=== PATIENT | female | born 1965 | race Caucasian/White ===

== ENCOUNTER 2017-08-14 13:39 | Outpatient (CLI) | payer OTHER ==
[2017-08-14 14:07] LABS: #Eosinphils 0.2 thou/uL (0.0-0.7); #Lymphocytes 2.5 thou/uL (1.20-3.40); #Monocytes 0.4 thou/uL (0.11-0.59); #Neutrophils 2.8 thou/uL (1.40-6.50); %Basophils 0.3 % (0.0-1.0); %Eosinophils 3.1 % (0.0-10.0); %Lymphocytes 42.8 % (21.0-51.0); %Monocytes 7.2 % (0.0-10.0); Hematocrit 48.5 % (36.0-47.0); Mean Platelet Volume 7.7 fL (7.4-10.4); Red Blood Cell (RBC) Count 5.22 mill/uL (4.20-5.40); White Blood Cell (WBC) Count 5.9 thou/uL (4.8-10.8)
[2017-08-14 14:32] LABS: Anion Gap 8 mmol/L (10-20); BUN (Urea Nitrogen) 19 mg/dL (7.0-18.7); Calc. Creatinine Clearance 0 mL/min (70-130); Calcium 9.2 mg/dL (7.8-10.44); Carbon Dioxide 31 mmol/L (22-29); Chloride 105 mmol/L (98-107); Estimated GFR-MDRD 63
== END 2017-08-14 13:40 | disposition home or self-care (01) ==
LOC: LABBT 13:39
PROVIDERS: ATTEND Orthopaedic Surgery
DX: Z01.818 Encounter for other preprocedural examination (principal); M75.102 Unspecified rotator cuff tear or rupture of left shoulder, not specified as traumatic
CPT/HCPCS: 80048; 85025; 93005; 93010

== ENCOUNTER 2017-08-16 06:28 | Day surgery (SDC) | payer OTHER ==
[2017-08-14 14:10] VITALS: BMI 39.6
[2017-08-16] MEDS ORDERED: Fentanyl 100 MCG/2 ML VIAL ONE ×3 (06:39→09:37)
[2017-08-16] MEDS ORDERED: Midazolam HCl 2 mg/2 ml Vial ONE ×2 (06:39→08:31)
[2017-08-16] MEDS ORDERED: Ropivacaine 0.2% HCl/PF 20 ML ONE (06:39)
[2017-08-16] MEDS ORDERED: Promethazine HCl 25 MG/ML VIAL IM PRN (07:50)
[2017-08-16] MEDS ORDERED: Ketorolac Tromethamine 30 MG/ML VIAL IVP PRN (07:50)
[2017-08-16] MEDS ORDERED: Ondansetron HCl/PF 4 MG/2 ML Vial IVP PRN (07:50)
[2017-08-16] MEDS ORDERED: Zolpidem Tartrate 5 MG TAB PO PRN (07:50)
[2017-08-16] MEDS ORDERED: ROPIVACAINE 0.2% NERVE BLCK SCH (07:50)
[2017-08-16] MEDS ORDERED: Glycopyrrolate 0.2 MG/ML 5 ML SYRINGE ONE (08:55)
[2017-08-16] MEDS ORDERED: Lidocaine 2% PF 10 ML AMP (For Epidural Use) ONE (08:55)
[2017-08-16] MEDS ORDERED: Propofol 200 MG/20 ML VIAL ONE (08:55)
[2017-08-16] MEDS ORDERED: Albuterol Sulfate 1.25 MG/3 ML NEB ONE (10:22)
--- NOTE | 2017-08-16 10:30 | OP ---
PREOPERATIVE DIAGNOSIS: Rotator cuff tear of the left shoulder. POSTOPERATIVE DIAGNOSIS: Rotator cuff tear of the left shoulder. SURGICAL PROCEDURES: Arthroscopic subacromial decompression and arthroscopic rotator cuff repair. SURGEON: Pedro Luis Best M.D. TEAR DOWN WORKER: None. ANESTHESIA: General. BLOOD LOSS: Minimal. DRAINS: None. COMPLICATIONS: None. DESCRIPTION OF THE PROCEDURE: The patient was placed in right lateral decubitus position. Left arm was placed in traction 15 pounds and prepped and draped in the usual sterile fashion. Scope was pl aced in the glenohumeral joint. There were no significant degenerative changes. There was a full-t hickness rotator cuff tear. Scope was placed in the subacromial bursa. I performed an anterior inf erior acromioplasty and bursectomy, rotator cuff was freshened, greater tuberosity was freshened and placed 2 Arthrex corkscrew suture anchors through the freshened bone, suture tendon down to bone wi th a good watertight repair and reinforced this with double row suture technique using a SwiveLock. Shoulder was then drained. Portals closed with nylon suture and sterile dressings applied. There were no complications.
== END 2017-08-16 12:45 | disposition home or self-care (01) ==
LOC: SDC 06:28
PROVIDERS: ATTEND Orthopaedic Surgery
PROC: 0RNK4ZZ Release Left Shoulder Joint, Percutaneous Endoscopic Approach (ICD-10-PCS; principal; 2017-08-16)
PROC: 0LQ24ZZ Repair Left Shoulder Tendon, Percutaneous Endoscopic Approach (ICD-10-PCS; principal; 2017-08-16)
DX: M75.122 Complete rotator cuff tear or rupture of left shoulder, not specified as traumatic (principal); F17.200 Nicotine dependence, unspecified, uncomplicated; E07.9 Disorder of thyroid, unspecified; Z79.899 Other long term (current) drug therapy; Z88.5 Allergy status to narcotic agent; Z90.710 Acquired absence of both cervix and uterus; Z98.890 Other specified postprocedural states; Z87.59 Personal history of other complications of pregnancy, childbirth and the puerperium; Z86.010 Personal history of colon polyps
CPT/HCPCS: A4306; C1713; G8981-GP-CK; G8982-GP-CK; G8983-GP-CK; J2001; J2250; J2704; J2795; J3010

== ENCOUNTER 2018-12-18 22:40 | Observation (INO) | payer SELFPAY ==
[2018-12-18 23:04] LABS: #Basophils 0.1 thou/uL (0.0-0.2); #Eosinphils 0.2 thou/uL (0.0-0.7); #Lymphocytes 2.7 thou/uL (1.20-3.40); #Monocytes 0.6 thou/uL (0.11-0.59); #Neutrophils 3.4 thou/uL (1.40-6.50); %Basophils 1.1 % (0.0-1.0); %Eosinophils 2.7 % (0.0-10.0); %Lymphocytes 39.2 % (21.0-51.0); %Monocytes 8.2 % (0.0-10.0); %Neutrophils 48.7 % (42.0-75.0); Hemoglobin 16.7 g/dL (12.0-16.0); Mean Corpuscular HGB CONC 33.2 g/dL (32.0-36.0); Mean Corpuscular Hemoglobin 30.7 pg (27.0-31.0); Mean Corpuscular Volume 92.4 fL (78.0-98.0); Mean Platelet Volume 8.1 fL (7.4-10.4); Platelet Count 230 thou/uL (130-400); RBC Distribution Width 12.3 % (11.5-14.5); Red Blood Cell (RBC) Count 5.43 mill/uL (4.20-5.40)
--- NOTE | 2018-12-18 23:12 | RAD ---
CHEST ONE VIEW: 12/18/18 INDICATION: History of chest pain. COMPARISON: Prior exam dated 06/09/07. FINDINGS: Heart size remains upper limits of normal. Lungs are clear. No pleural effusion is evident. There is postsurgical change of a left rotator cuff repair. No acute osseous abnormality is evident. IMPRESSION: No acute cardiopulmonary abnormality. POS: [facility]
[2018-12-18 23:41] LABS: ALT (SGPT) 18 U/L (8-55); AST (SGOT) 18 U/L (5-34); Alkaline Phosphatase 89 U/L (40-150); Anion Gap 14 mmol/L (10-20); BUN (Urea Nitrogen) 16 mg/dL (9.8-20.1); Bilirubin, Total 0.3 mg/dL (0.2-1.2); Calc. Creatinine Clearance 0 mL/min (70-130); Calcium 9.5 mg/dL (7.8-10.44); Carbon Dioxide 22 mmol/L (22-29); Chloride 106 mmol/L (98-107); Estimated GFR-MDRD 58; Globulin 2.8 g/dL (2.4-3.5); Glucose 115 mg/dL (70-105); Potassium 3.5 mmol/L (3.5-5.1); Protein, Total 6.8 g/dL (6.0-8.3); Sodium 138 mmol/L (136-145)
[2018-12-19] MEDS ORDERED: Aspirin Chewable 81 MG TAB ONE (01:45)
--- NOTE | 2018-12-19 03:02 | PDOC.FPRHP ---
- History of Present Illness Chief Complaint: chest pain History of Present Illness: The patient is a 53YOF w/ a h/o custodial tobacco use who presented to the ED w/ a CC of chest pain that has been occurring episodically over the last 6 weeks. Per the patient she has randomly had episodic central chest pain that she described as pressure-like & 5-6/10 in severity that typically lasts about 15- 20 minutes before resolving spontaneously for the last 6 weeks. The patient does not report any particular exacerbating factors such as worsening with exertion. She also denied any associated diaphoresis, SOB, or N/V. She stated that over the course of the day yesterday she had 2 episodes of severe 8-9/10 pain. The first episode resolved on its own like usual but the second episode did not go away so she decided to come to the ED for further evaluation. Of note , the patient reports having had a cardiac cath 10 years ago that was negative. The patient also reported being very stressed at work recently and feels this may be exacerbating her chest pain. ED Course: 325 ASA & 1L NS - Allergies/Adverse Reactions Allergies Allergy/AdvReac Type Severity Reaction Status Date / Time morphine Allergy "swelled Verified 12/19/18 04:42 up real bad" - Home Medications Medication Instructions Recorded Confirmed Type Phendimetrazine Tartrate 1 cap PO DAILY 12/19/18 12/19/18 History [Phendimetrazine Tartrate ER] - History PMHx: spastic colon, h/o BCC, obesity PSHx: ectopic surgery, mutiple surgeries for adhesions, L shoulder surgery, left ear reconstruction, partial hysterectomy FHx: grandmother HTN Social: 1ppd since age 18. No EtOH or drug use. - Review of Systems General: denies: fever/chills, weight/appetite/sleep changes Eyes: denies: eye pain, vision changes ENT: reports: other (no sore throat). denies: nasal congestion Respiratory: denies: cough, shortness of breath Cardiovascular: reports: chest pain. denies: edema Gastrointestinal: denies: nausea, vomiting, diarrhea, constipation Genitourinary: reports: other (no frequency). denies: dysuria Skin: denies: rashes, lesions Musculoskeletal: denies: tenderness, swelling Neurological: denies: numbness, syncope, weakness Psychological: reports: anxiety. denies: depression - Vital signs BP: 105/57 HR: 75 RR: 17 Tmax: 98.3F Pox: 95% on RA Wt: 104.145 kg - Physical Exam Constitutional: NAD, awake, alert and oriented, well developed HEENT: normocephalic and atraumatic, grossly normal vision, grossly normal hearing, MMM Neck: supple, FROM Chest: no-tender to palpation Heart: RRR, normal S1/S2, no murmurs/rubs/gallops, pulses present, no edema Lungs: CTAB, no respiratory distress, good air movement, no rales/rhonchi, no wheezing Abdomen: soft, non-tender, bowel sounds present Musculoskeletal: normal structure, ROM grossly normal Neurological: no focal deficit, CN II-XII intact (grossly) Skin: no rash/lesions Heme/Lymphatic: no unusual bruising or bleeding, no purpura, no petechia Psychiatric: normal mood and affect, good judgment and insight, intact recent and remote memory FMR H&P: Results - Labs Result Diagrams: 12/18/18 22:54 12/18/18 22:54 Lab results: WBC 7.0 thou/uL (4.8-10.8) 12/18/18 22:54 Hgb 16.7 g/dL (12.0-16.0) H 12/18/18 22:54 Hct 50.2 % (36.0-47.0) H 12/18/18 22:54 MCV 92.4 fL (78.0-98.0) 12/18/18 22:54 Plt Count 230 thou/uL (130-400) 12/18/18 22:54 Neutrophils % 48.7 % (42.0-75.0) 12/18/18 22:54 Sodium 138 mmol/L (136-145) 12/18/18 22:54 Potassium 3.5 mmol/L (3.5-5.1) 12/18/18 22:54 Chloride 106 mmol/L (98-107) 12/18/18 22:54 Carbon Dioxide 22 mmol/L (22-29) 12/18/18 22:54 BUN 16 mg/dL (9.8-20.1) 12/18/18 22:54 Creatinine 1.01 mg/dL (0.6-1.1) 12/18/18 22:54 Glucose 115 mg/dL (70-105) H 12/18/18 22:54 Calcium 9.5 mg/dL (7.8-10.44) 12/18/18 22:54 Total Bilirubin 0.3 mg/dL (0.2-1.2) 12/18/18 22:54 AST 18 U/L (5-34) 12/18/18 22:54 ALT 18 U/L (8-55) 12/18/18 22:54 Alkaline Phosphatase 89 U/L (40-150) 12/18/18 22:54 Serum Total Protein 6.8 g/dL (6.0-8.3) 12/18/18 22:54 Albumin 4.0 g/dL (3.5-5.0) 12/18/18 22:54 - Radiology Interpretation Chest x-ray Status: report reviewed by me (no acute findings) CT scan - chest Status: pending FMR H&P: A/P - Problem List (1) Atypical chest pain Current Visit: Yes Status: Acute Code(s): R07.89 - OTHER CHEST PAIN (2) Anxiety Current Visit: Yes Status: Acute Code(s): F41.9 - ANXIETY DISORDER, UNSPECIFIED (3) Obesity Current Visit: Yes Status: Acute Code(s): E66.9 - OBESITY, UNSPECIFIED (4) Tobacco use Current Visit: Yes Status: Acute Code(s): Z72.0 - TOBACCO USE (5) Polycythemia Current Visit: Yes Status: Acute Code(s): D75.1 - SECONDARY POLYCYTHEMIA - Plan Atypical chest pain: - Patient's history not typical for angina & EKG showed NSR w/ an initial troponin WNLs. However, given her risk factors & heart score of 3, will proceed with stress test this AM. Will keep NPO for this and continue PRN nitro for CP. - Will get a FLP to risk stratify as well. Elevated D-dimer: - D-dimer slightly elevated at 0.54 on admission. - CTA chest pending but low suspicion for PE as patient denies any SOB and is satting well on RA. Polycythemia: - Likely 2/2 tobacco use. Will continue to monitor. Tobacco use: - Aware, will encourage cessation. - Nicotine patch. FMR H&P: Upper Level - Pertinent history 53F presents with complaint of 6 week of intermittent chest pain. She describes it as sharp and pressure like, radiating down her left arm and side. It is exacerbated by stress. Last a few hours at time. Not relieved by anything. Says that her job has been particularly stressful recently and she thinks a large part of her discomfort is due to that. In ER, she has received 325 of aspirin, 1 L of fluid and 50 mcg fentanyl. Her trop and EKG was negative. Due to an indeterminate d-dimer, a CTA was order which was read as negative for PE - Pertinent findings Gen: Alert, oriented HEENT: Normocephalic, vision and hearing grossly intact, midline trachea, moist mucosal membrane CV: RRR with no m/g/r Resp: CTA, unlabored GI: Soft, non tender, normoactive Ext: No edema noted Derm: No acute lesion seen - Plan Date/Time: 12/19/18 0302 I, [Fredy Conn], have evaluated this patient and agree with findings/plan as outlined by recruiting internship resident. Pertinent changes/additions are listed here. 1. ACS rule out - Heart score of at least 2 due to risk factor - Trop neg, will continue to trend - Tomorrow, obtain lipid, stress test - Patient has no lipid panel, will obtain 2. Elevated D-dimer - CTA neg, unlikely PE 3. Polycythemia vera - Was noted to be elevated at previous visit 2 year ago. - Patient BMI could suggest sleep apnea or pickwickian, possible cause of elevated HGB, along with tobacco abuse - Recommend follow up as outpatient 4. Depression - Chronic stable issue, continue home bupropion 5. Tobacco abuse - Counseling, nicotine patch Addendum - Attending - Attending Attestation Date/Time: 12/19/18 1043 I personally evaluated the patient and discussed the management with Dr. Scott/ [place]. I agree with the History, Examination, Assessment and Plan documented above with any addition or exceptions noted below. Patient here for ACS r/o. Troponins negative. Suspect this may be life stressor/ anxiety related. Stress test pending. If negative, likely discharge home later with further workup outpatient.
[2018-12-19] MEDS ORDERED: Fentanyl 100 MCG/2 ML VIAL ONE (03:34)
[2018-12-19] MEDS ORDERED: Ondansetron ODT 4 MG TAB PO PRN (04:23)
[2018-12-19] MEDS ORDERED: Nitroglycerin 0.4 MG TAB (25 Tab Bottle) PO PRN (04:23)
[2018-12-19 04:31] VITALS: BMI 43.4
[2018-12-19 05:12] VITALS: TEMP 98.4
[2018-12-19] MEDS ORDERED: Nicotine 21 MG PATCH TD SCH (06:00)
[2018-12-19 08:05] VITALS: BP 133/69
--- NOTE | 2018-12-19 10:02 | CT ---
PRELIMINARY REPORT/[facility]/EMERGENTY AFTER-HOURS PROCEDURE CT Angiography Chest With Contrast EXAM DATE/TIME: 12/19/2018 1:11 AM CLINICAL HISTORY: 53 years old, female; Pain; Chest pain; Patient HX: F53 presents to ed for intermittent chest pain x 1 month. PT states that today the pain was occurring more frequently and worsened tonight. PT describ es the pain as squeezing/pressure to the left side of her chest TECHNIQUE: Axial computed tomographic angiography images of the chest with intravenous contrast using CT angiogr aphy protocol. MIP reconstructed images were created and reviewed. COMPARISON: No relevant prior studies available. FINDINGS: Pulmonary arteries: Normal. No pulmonary emboli. Aorta: Normal. No aortic aneurysm. No aortic dissection. Lungs: There are 2 adjacent tiny indeterminate right apical pulmonary nodules, each measuring approxi mately 2-3 mm. Lungs otherwise clear. Pleural space: Normal. No pneumothorax. No pleural effusion. Heart: Normal. No cardiomegaly. No pericardial effusion. Mediastinum: Esophagus is unremarkable. Liver: Hepatic steatosis. Lymph nodes: Unremarkable. No enlarged lymph nodes. Bones/joints: Unremarkable. No acute fracture. Soft tissues: Unremarkable. IMPRESSION: No acute findings. Thank you for allowing us to participate in the care of your patient. Dictated and Authenticated by: Demarcus Walker MD 12/19/2018 1:47 AM Central Time ([place] & [place]) FINAL REPORT CT ARTERIOGRAM CHEST WITH IV CONTRAST AND 3D MIP IMAGING: DATE: 12/19/2018. TIME: Performed on an emergency basis at 0113 hours. HISTORY: Chest pain. Dyspnea. FINDINGS: Agree with the preliminary report by Dr. Walker from [facility]. No CT evidence of pulmonary embolus. POS: [facility]
--- NOTE | 2018-12-19 14:23 | NM ---
NUCLEAR MEDICINE CARDIAC STRESS WITH EJECTION FRACTION AND WALL MOTION: Date: 12/19/18 HISTORY: Chest pain. COMPARISON: 05/31/07. TECHNIQUE: Stress-only imaging performed. Patient was administered 29.6 mCi of technetium-99m sestamibi. FINDINGS: There is homogeneous distribution of the radiotracer. End-diastolic volume is 66 mL. End-systolic volume is 15 mL. CARDIAC GATING: Normal motion and thickening. 77% ejection fraction. IMPRESSION: Homogeneous distribution of the radiotracer. 77% ejection fraction. POS: [facility]
[2018-12-19] MEDS ORDERED: ISOVUE-370 76%-LOCM 1 ML ONE (16:34)
--- NOTE | 2018-12-22 08:52 | DIS ---
DATE OF ADMISSION: 12/19/2018 DATE OF DISCHARGE: 12/19/2018 RESIDENT: Margo Silver MD, PGY-1. ADMITTING ATTENDING: Kael Zhou MD DISCHARGE ATTENDING: Kael Zhou MD CONSULTS: None. PROCEDURES: 1. Chest x-ray, no acute cardiopulmonary abnormality. 2. Chest/thorax CTA, no acute findings. 3. Nuclear stress test. Homogeneous distribution of the radiotracer, 77% ejection fraction. PRIMARY DIAGNOSIS: Atypical chest pain. SECONDARY DIAGNOSES: 1. Elevated D-dimer. 2. Polycythemia. 3. Tobacco abuse. DISCHARGE MEDICATIONS: Phendimetrazine tartrate 105 mg daily. DISCONTINUED MEDICATIONS: None. HISTORY OF PRESENT ILLNESS/HOSPITAL COURSE: is a 53-year-old female , who presented to the ED with chief complaint of chest pain that resolved on its own , but the second episode did not go away, so she came to the ED. She did have a cardiac cath 10 years ago that was negative and in the ED, received 325 aspirin and 1 L normal saline. Troponins were negative x3. D-dimer was elevated at 0.54. CTA was performed that showed no evidence of pulmonary embolism. EKG showed no ST- segment changes. Stress test was normal. She was noted to have hemoglobin of 16.7. This can be followed up outpatient for the cause of her polycythemia. DISPOSITION: Stable. DISCHARGE INSTRUCTIONS: 1. Location: Home. 2. Diet: Regular. 3. Activity: No restrictions. 4. Followup: Follow up with Dr. Villarreal within 7 days. Job ID: [id number] MTDD
== END 2018-12-19 15:39 | disposition home or self-care (01) ==
LOC: ERS 22:40 → 2SW 12-19 04:22
PROVIDERS: ADMIT Emergency Medicine; ATTEND Emergency Medicine
DX: R07.89 Other chest pain (principal); D75.1 Secondary polycythemia; E66.9 Obesity, unspecified; Z68.41 Body mass index [BMI] 40.0-44.9, adult; K58.9 Irritable bowel syndrome, unspecified; F17.210 Nicotine dependence, cigarettes, uncomplicated; F41.9 Anxiety disorder, unspecified; F32.9 Major depressive disorder, single episode, unspecified; Z90.711 Acquired absence of uterus with remaining cervical stump; Z88.5 Allergy status to narcotic agent; Z79.899 Other long term (current) drug therapy; Z98.890 Other specified postprocedural states
CPT/HCPCS: 36415; 71045; 71275; 78452; 80053; 84484; 85025; 85379; 93005; 93017; 94760; 96361; 96374; A9500; G0378; J3010; Q9966

== ENCOUNTER 2019-06-26 19:26 | Emergency (ER) | payer SELFPAY ==
[2019-06-26] MEDS ORDERED: Dexamethasone 4 mg/ml Vial ONE (20:32)
[2019-06-26] MEDS ORDERED: diphenhydrAMINE 25 MG CAP ONE (20:32)
== END 2019-06-26 21:00 | disposition home or self-care (01) ==
LOC: ERS 19:26
DX: T78.40XA Allergy, unspecified, initial encounter (principal); F32.9 Major depressive disorder, single episode, unspecified; F17.210 Nicotine dependence, cigarettes, uncomplicated
CPT/HCPCS: 99283; J1100; Q0163

== ENCOUNTER 2019-07-31 15:22 | Emergency (ER) | payer SELFPAY ==
--- NOTE | 2019-07-31 16:01 | RAD ---
Chest 2 views HISTORY: Cough. FINDINGS: Cardiac silhouette and pulmonary vasculature are unremarkable. Triangular parenchymal opaci ty projects over the anterior segment right upper lobe. Pulmonary vasculature is upper limits of normal. Peripheral linear markings at the left lateral base may represent atelectasis. No pleural flu id or pneumothorax. Postoperative changes left shoulder. IMPRESSION: Subsegmental atelectasis anterior segment right upper lobe. Please consider close radiogr aphic follow-up, and potentially pulmonary evaluation.
== END 2019-07-31 16:42 | disposition home or self-care (01) ==
LOC: ERS 15:22
DX: J20.9 Acute bronchitis, unspecified (principal); Z71.6 Tobacco abuse counseling; F32.9 Major depressive disorder, single episode, unspecified; F17.210 Nicotine dependence, cigarettes, uncomplicated; Z79.899 Other long term (current) drug therapy
CPT/HCPCS: 71046; 93005; 99406

== ENCOUNTER 2019-09-23 12:30 | Emergency (ER) | payer SELFPAY ==
[2019-09-23] MEDS ORDERED: Ketorolac Tromethamine 30 MG/ML VIAL ONE (12:47)
[2019-09-23] MEDS ORDERED: Adacel (T-DAP) 0.5 ML SYRINGE ONE (12:54)
== END 2019-09-23 13:22 | disposition home or self-care (01) ==
LOC: ERS 12:30
DX: S61.551A Open bite of right wrist, initial encounter (principal); F17.210 Nicotine dependence, cigarettes, uncomplicated; F32.9 Major depressive disorder, single episode, unspecified; Z79.899 Other long term (current) drug therapy; W55.01XA Bitten by cat, initial encounter
CPT/HCPCS: 90471; 90715; 96372; J1885

== ENCOUNTER 2022-04-19 15:19 | Outpatient (CLI) | payer OTHER | END 2022-04-19 15:20 | disposition home or self-care (01) | LOC: BICMAMMO 15:19 | PROVIDERS: ATTEND Family Medicine | DX: Z12.31 Encounter for screening mammogram for malignant neoplasm of breast (principal) | CPT/HCPCS: 77063; 77067 ==